=== PATIENT | female | born 1965 | race Caucasian/White ===

== ENCOUNTER → 2016-12-08 | Outpatient (CLI) | payer OTHER | END | disposition home or self-care (01) | LOC: CFH 12:28 → EDSTATUS 12:45 | PROVIDERS: ATTEND Internal Medicine | DX: Z12.31 Encounter for screening mammogram for malignant neoplasm of breast (principal); E04.1 Nontoxic single thyroid nodule | CPT/HCPCS: 77063; G0202 ==

== ENCOUNTER 2020-08-18 20:46 | Emergency (ER) | payer OTHER ==
[~2020-08-18] VITALS: Ht 172.7 cm; Wt 72.5 kg
[2020-08-18 20:49] VITALS: BP 129/94
[2020-08-18] MEDS ORDERED: LIDOCAINE 1%, 10ML INFIL ONE (21:30)
--- NOTE | 2020-08-18 21:53 | NUR ---
PT TO ROOM FROM LOBBY
[2020-08-18] MEDS ORDERED: LIDOCAINE-MPF 1%, 2ML INFIL ONE (22:00)
[2020-08-18] MEDS ORDERED: LIDOCAINE-MPF 1%, 5ML ONE (22:49)
== END 2020-08-18 23:20 | disposition home or self-care (01) ==
LOC: ED 23:14
DX: S06.0X0A Concussion without loss of consciousness, initial encounter (principal); S01.01XA Laceration without foreign body of scalp, initial encounter; W01.0XXA Fall on same level from slipping, tripping and stumbling without subsequent striking against object, initial encounter; Y93.89 Activity, other specified; Y92.828 Other wilderness area as the place of occurrence of the external cause; Y99.8 Other external cause status
CPT/HCPCS: 12032; 99284